=== PATIENT | male | born 1985 | race African-American/Black ===

== ENCOUNTER 2021-02-09 18:21 | Emergency (ER) | payer BC ==
[~2021-02-09] VITALS: Ht 182.9 cm; Wt 108.9 kg
--- NOTE | 2021-02-09 18:50 | NUR ---
TO ER BED 2, C/O LEFT EYE SWELLING AND PAIN, AWAITING MD ABREU
--- NOTE | 2021-02-09 19:07 | NUR ---
REPORT GIVEN TO CRUZ RN FOR MIKE
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
--- NOTE | 2021-02-09 19:28 | NUR ---
RECEIVED REPORT FROM MATILDE RAMAN.
[2021-02-09] MEDS ORDERED: ACET-2605 PO (19:45)
--- NOTE | 2021-02-09 20:02 | NUR ---
Patient discharged to home in stable condition. Written and verbal after care instructions given. Patient verbalizes understanding of instruction. Provided pt with copies of xrays and RX given.
[2021-02-09 20:03] VITALS: BP 155/95
== END 2021-02-09 20:04 ==
LOC: ER 18:21
DX: S00.12XA Contusion of left eyelid and periocular area, initial encounter (principal); D17.9 Benign lipomatous neoplasm, unspecified; K08.89 Other specified disorders of teeth and supporting structures; Y04.0XXA Assault by unarmed brawl or fight, initial encounter; Y93.89 Activity, other specified; Y92.89 Other specified places as the place of occurrence of the external cause; Y99.8 Other external cause status
CPT/HCPCS: 70486-TC